=== PATIENT | male | born 1970 | race Caucasian/White ===

== ENCOUNTER 2016-10-17 19:12 | Emergency (ER) | payer OTHER ==
[~2016-10-17] VITALS: Ht 180.3 cm; Wt 99.8 kg
[2016-10-17] MEDS ORDERED: IBUPROFEN 600 MG TAB PO ONE ×2 (19:18→19:30)
[2016-10-17 19:26] VITALS: BP 123/90
== END 2016-10-17 23:04 | disposition home or self-care (01) ==
LOC: ER 19:22
DX: S61.411A Laceration without foreign body of right hand, initial encounter (principal); S60.221A Contusion of right hand, initial encounter; X58.XXXA Exposure to other specified factors, initial encounter; Y93.89 Activity, other specified; Y99.8 Other external cause status; Y92.89 Other specified places as the place of occurrence of the external cause
CPT/HCPCS: 12001; 73130